=== PATIENT | male | born 2000 | race Caucasian/White ===

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

== ENCOUNTER 2023-04-05 20:23 | Emergency (ER) | payer BC, SELFPAY ==
[2023-04-05 20:24] VITALS: BP 123/83; PULSE 103; RESP 15; TEMP 37.4; O2SAT 98; BMI 31.0
--- NOTE | 2023-04-05 21:56 | US_ITS ---
EXAM: US SCROTUM CLINICAL INDICATION: left testicle pain TECHNIQUE: Realtime ultrasound of the testicles was performed with grayscale and Color Doppler analysis. COMPARISON: No relevant prior studies available. FINDINGS: RIGHT TESTICLE: Right testicle measures 4.8 x 2.0 x 3.0 cm. Normal in size and echotexture. No focal lesion. Normal blood flow is present. LEFT TESTICLE: The left testicle measures 5.2 x 2.3 x 2.8 cm. Normal in size and echotexture. No focal lesion. Normal blood flow is present. EPIDIDYMIDES: The epididymal head measures 0.6 x 1.3 x 0.6 cm. The left epididymal head measures 0.8 x 1.2 x 1.0 cm. There is a 3 mm epididymal cyst on the left. Normal color Doppler flow pattern in the epididymis. SCROTUM: There is a right-sided hydrocele present. No varicocele. US/Testicular with Arterial Flow IMPRESSION: Right-sided hydrocele. No other abnormalities are identified. There is no evidence of torsion. Electronically Signed: Agustin Bills MD at 22:53 EDT ,
--- NOTE | 2023-04-05 21:57 | EDS_ITS ---
HPI History of Present Illness Chief Complaint: Male Pain/Injury Detail of Chief Complaint: Left testicle pain Informant: patient Narrative Narrative: Patient presents with left testicle pain that started around 5 PM while at work. Patient states the pain came on gradually and worsened. At rest pain is like a 2 or 3 out of 10 but at times will have sharp exacerbations of the pain that goes up to about a 6 or 7 out of 10. Pain kind of radiates into the lower left abdomen. Patient denies any fevers. He had nausea but no vomiting. He has had some chills at home. PFSH PFSH Home Medications naproxen 500 mg tablet 500 mg PO BID #14 tabs 03/27/20 [Rx Last Taken Unknown] naproxen 500 mg tablet (Naprosyn) 500 mg PO BID PRN pain #20 tabs 04/05/23 [Rx Last Taken Unknown] sulfamethoxazole 800 mg-trimethoprim 160 mg tablet 1 tab PO BID #20 TABLETS 04/05/23 [Rx Last Taken Unknown] Allergy/AdvReac Type Severity Reaction Status Date / Time No Known Allergies Allergy Verified 04/05/23 20:27 Surgical History no surgical history Social History Smoking Status: Current every day smoker tobacco type: e-cigarettes ROS ROS ED Review of Systems ROS Unobtainable: other Constitutional Constitutional ED: Reports lethargy; Denies chills, fever(s), sweats or weight loss Eyes Eyes: Denies blurry vision, change in vision or diplopia ENT ENT ED: Denies rhinorrhea or sore throat Cardiovascular Cardiovascular: Denies chest pain, orthopnea or racing heartbeat Respiratory/Chest Respiratory/Chest: Denies cough, dyspnea, dyspnea on exertion, orthopnea or sputum Gastrointestinal Gastrointestinal: Reports abdominal pain; Denies diarrhea, nausea or vomiting Genitourinary Genitourinary ED: Reports other Details: Left testicle pain ; Denies dysuria, hematuria or urinary frequency Musculoskeletal Musculoskeletal: Denies arthralgias, back pain, myalgias or neck pain Integumentary Denies abscess, Abrasions or rash Neurologic Neurologic: Denies headache(s) or weakness Psychiatric Psychiatric: Denies anxiety, depression or suicidal thoughts Endocrine Endocrinology: Denies polydipsia, polyphagia or polyuria Hematologic/Lymphatic Hematologic/Lymphatic: Denies easy bleeding, easy bruising or lymphadenopathy Allergic/Immunologic Allergic/Immunologic ED: Denies mouth swelling, tongue swelling or urticaria EXAM Physical Exam Const Vital Signs: 04/05/23 20:24 Temperature 99.3 F H Temperature Source Temporal Pulse Rate 103 H Respiratory Rate 15 Blood Pressure 123/83 H Blood Pressure Mean 96 Pulse Ox 98 Oxygen Delivery Method Room Air Positive well nourished and well developed General Appearance ED: well developed and NAD HEENT Reports TM's clear and moist mucous membranes normocephalic and atraumatic; Negative for trauma or tenderness Tympanic Membrane ED: Yes TM's clear Eyes PERRL and EOMs intact bilaterally General Eye ED: Negative for pale conjunctiva or scleral icterus Neck no lymphadenopathy, supple and no JVD General: Negative for tenderness Chest Wall inspection of chest normal and palpation of chest normal Chest: Negative for tenderness Resp normal respiratory effort and clear to auscultation bilaterally Effort and Inspection: Negative for respiratory distress or pain with movement Auscultation: Negative for rhonchi, wheezes or diminished lung sounds Cardio regular rate, regular rhythm, S1 normal heart sound, S2 normal heart sound and no murmurs Peripheral Pulses: pulses 2+ throughout GI normal to inspection, nondistended, normoactive bowel sounds, soft to palpation, non-distended and no masses GI Narrative: Mild tenderness to palpation over left lower quadrant. No rebound, rigidity, or peritoneal signs. No mass palpated. No hernias noted Narrative: exam-circumcised male. Patient has tenderness over the left testicle. There is normal lie and normal cremasteric reflex. Mild tenderness over the epididymis. Back/Spine no CVA tenderness and no thoracic nor lumbar tenderness Extremity normal to inspection General Extremety ED: Negative for edema General Extremity: Negative for edema Neuro oriented x3, CN's II-XII intact bilaterally, no sensory deficits noted and gait normal Sensorium / Orientation: awake, alert, oriented to person, oriented to place and oriented to time Motor Exam: strength 5/5 throughout and strength abnormal Psych mental status grossly normal Skin no rashes or lesions noted and no wounds MDM MDM MDM Narrative Medical decision making narrative: Patient presented with left testicle pain that started today. In the differential would be torsion versus epididymitis versus hydrocele versus hernia versus kidney stone. On physical exam I do not appreciate any hernias. Clinically I do not feel he has a torsion. He had a testicular ultrasound that showed a right-sided hydrocele otherwise nothing acute. Patient had normal flow to both testicles. Patient had a urinalysis that was normal. Clinically patient looks well. I will start him on Bactrim as I suspect this could be early epididymitis. Patient also will be given a prescription for naproxen and advised to wear scrotal support. Will refer to urology for follow-up. Patient advised to return if worsening pain, fever, vomiting, or condition should worsen anyway. Lab Data Labs: Laboratory Results - last 24 hr 04/05/23 22:45 Urine Color Yellow Urine Clarity Clear Urine pH 6.5 Ur Specific [place] 1.010 Urine Protein Negative Urine Glucose (UA) Normal Urine Ketones Negative Urine Occult Blood Negative Urine Nitrite Negative Urine Bilirubin Negative Urine Urobilinogen Normal Ur Leukocyte Esterase Negative Urine RBC 0 SEEN Urine WBC 0 SEEN Ur Squamous Epith Cells 0 SEEN Urine Bacteria 0 SEEN Urine Mucus 0 SEEN Radiography Diagnostic Testing: Clinical Impression(s) from Imaging Studies Testicular Ultrasound 04/05/23 21:56 IMPRESSION: Right-sided hydrocele. No other abnormalities are identified. There is no evidence of torsion. Electronically Signed: Agustin Bills MD at 22:53 EDT , Discharge Plan Triage Chief Complaint: Male Pain/Injury ED Provider: Tanika Miles Dx/Rx/DC Orders Clinical Impression: Pain in left testicle Instructions: ED Epididymitis, ED Testicular Pain, Unclear Cause Prescriptions: New sulfamethoxazole-trimethoprim [sulfamethoxazole-trimethoprim] 800-160 mg tablet 1 tab PO BID Qty: 20 0RF naproxen [Naprosyn] 500 mg tablet 500 mg PO BID PRN (Reason: pain) Qty: 20 0RF No Action naproxen 500 MG tablet 500 mg PO BID Qty: 14 0RF Primary Care Provider: Berlin Gonzalez Referrals: Denis Holt MD [Med Staff - Active Staff] - 3-5 Days Berlin Gonzalez MD [Primary Care Provider] - Disposition Disposition: Home, Self Care Discharge Date/Time: 04/05/23 23:44
[2023-04-05 22:53] LABS: Bacteria 0 SEEN /hpf (None Seen); Mucous, Urine 0 SEEN /hpf (<or=2+); Red Blood Cells-Urine 0 SEEN /hpf (0-5); Squamous Epithelial Cells - UA 0 SEEN /hpf (0-5); White Blood Cells 0 SEEN /hpf (0-5)
[2023-04-05 22:59] LABS: Color, Urine Yellow (Yellow); Glucose, Dipstick Normal (Normal); Ketone-Dipstick Negative (Negative); Leukocyte Esterase-Dipstick Negative /ul (Negative); Nitrite-Dipstick Negative (Negative); Occult Blood-Urine Negative /ul (Negative); Protein-Dipstick Negative (Negative); Urine Bilirubin Dipstick Negative (Negative); Urine Clarity Clear (Clear); Urine Urobilinogen Normal (Normal); Urine pH 6.5 (5.0 - 8.0)
[2023-04-05] MEDS: Smz/Tmp Ds Tablet 1 TABLET PO (23:29)
[2023-04-05] MEDS: Naproxen 375 MG Tablet PO (23:29)
== END 2023-04-05 23:44 | disposition home or self-care (01) ==
PROVIDERS: Emergency Provider Emergency Medicine; PCP Pediatrics; Visit Provider Emergency Medicine
DX: N50.812 Left testicular pain (principal); F17.290 Nicotine dependence, other tobacco product, uncomplicated
CPT/HCPCS: 99281; 76870; 81001; 93976; 99283

== ENCOUNTER 2024-01-15 20:53 | Emergency (ER) | payer BC, SELFPAY ==
[2024-01-15 20:53] VITALS: BP 100/82; PULSE 73; RESP 15; TEMP 36.1; O2SAT 100; BMI 29.2
[2024-01-15 21:53] VITALS: BP 127/66; PULSE 59; RESP 20; O2SAT 95
[2024-01-15 21:53] LABS: Absolute Lymphocyte Count 1.61 X10^3/uL (0.83-4.51); Absolute Neutrophil Count 5.1 X10^3/uL (2.0-7.7); Basophil# 0.05 X10^3/uL; Basophil% 0.7 % (0-1); Eosinophil# 0.18 X10^3/uL; Eosinophils% 2.4 % (0-5); Hematocrit 43.9 % (40-54); Lymphocyte # 1.61 X10^3/ul (0.83-4.51); Lymphocyte % 21.8 % (19-41); Mean Corp Hgb Conc 31.9 g/dL (32-36); Mean Corpuscular Hgb 27.9 pg (27.0-32.0); Mean Corpuscular Volume 87.6 fL (80-94); Monocyte% 5.4 % (0-10); NRBC Flagged by Analyzer 0 % (0-5); Neutrophil # 5.13 X10^3/uL (2.7-7.7); Neutrophil % 69.6 % (47-70); Platelet Count 292 K/mm3 (150-450); RBC Distribution Width CV 12.5 % (11.6-14.6); RBC Distribution Width SD 39.8 fl (35.1-43.9); Red Blood Count 5.01 M/mm3 (4.6-6.2); White Blood Count 7.4 K/mm3 (4.4-11.0)
--- NOTE | 2024-01-15 21:55 | RAD_ITS ---
INDICATION: chest pain EXAMINATION/TECHNIQUE: X-RAY - portable upright AP chest x-ray COMPARISON: None. FINDINGS: LINES/DEVICES: None. LUNGS: No consolidation, edema or effusion. No pneumothorax. MEDIASTINUM AND CARDIOVASCULAR STRUCTURES: Cardiac silhouette not enlarged. Central airways and mediastinal contour are unremarkable. BONES AND SOFT TISSUES: Unremarkable. RAD/Chest 1 View (Portable) IMPRESSION: No radiographic evidence of acute cardiopulmonary disease. Electronically Signed: Kenneth Mcgill MD at 22:38 EDT ,
[2024-01-15 22:00] VITALS: BP 122/67; PULSE 58; RESP 18; O2SAT 100
--- NOTE | 2024-01-15 22:09 | ED.VIS.CHEST ---
HPI History of Present Illness Chief Complaint: Chest Pain Informant: patient Narrative Narrative: Patient has been having nonpleuritic left-sided chest tightness all day, about 13 hours now. He woke up with the discomfort. Nothing is really adjusted at all day. Is nonpleuritic, nonexertional, position changes do not seem to affect anything, eating did not seem to affect anything today. Denies anything unusual overnight prior to the onset that he can recall. Has not made him dyspneic. Discomfort radiates up into his left base of the neck and his left arm a little, he thinks. Never had this before which is why he is here in the ER to have it evaluated. He is healthy with no medical problems, he vapes but does not smoke tobacco or do any other drugs. CVD Risk Factors: Negative for Hypertension, Diabetes, Hypercholesterolemia or Smoking PE Risk Factors: Negative for Recent Travel/Surgery, Recent Immobilization, Prior DVT or PE, Cancer or OCP + Smoking + >/=35 PFSH PFSH Medical History (Updated 01/15/24 @ 22:[address] Onur Mcgee MD) Pericarditis Medical History no medical history no medical history Home Medications NK 01/15/24 [History Last Taken Unknown] Allergy/AdvReac Type Severity Reaction Status Date / Time No Known Allergies Allergy Verified 01/15/24 20:53 Social History Smoking Status: Current every day smoker tobacco type: e-cigarettes ROS ROS ED Constitutional Constitutional ED: Denies chills or fever(s) Eyes Eyes: Denies change in vision or diplopia ENT ENT ED: Denies rhinorrhea or sore throat Cardiovascular Cardiovascular: Reports as per HPI and chest pain; Denies palpitations Respiratory/Chest Respiratory/Chest: Reports as per HPI; Denies cough or dyspnea Gastrointestinal Gastrointestinal: Denies abdominal pain, diarrhea, nausea or vomiting Musculoskeletal Musculoskeletal: Reports as per HPI and extremity pain; Denies back pain or neck pain Integumentary Denies abscess or rash Neurologic Neurologic: Denies headache(s), paresthesias or weakness Psychiatric Psychiatric: Denies anxiety or suicidal thoughts EXAM Physical Exam Const Vital Signs: 01/15/24 20:53 01/15/24 21:53 01/15/24 22:00 Temperature 97 F L Temperature Source Temporal Pulse Rate 73 59 L 58 L Respiratory Rate 15 20 H 18 Respiratory Effort Blood Pressure 100/82 H 127/66 H 122/67 H Blood Pressure Mean 88 86 85 Pulse Ox 100 95 100 Oxygen Delivery Method Room Air Room Air 01/15/24 22:19 01/15/24 22:19 01/15/24 23:00 Temperature Temperature Source Pulse Rate 56 L Respiratory Rate 18 Respiratory Effort Normal Blood Pressure 116/77 Blood Pressure Mean 90 Pulse Ox 97 Oxygen Delivery Method Room Air Room Air Positive well nourished and well developed General Appearance ED: well developed and NAD HEENT Reports moist mucous membranes normocephalic and atraumatic Eyes PERRL and EOMs intact bilaterally Neck full ROM and supple Chest Wall inspection of chest normal Chest Narrative: Mild tenderness left chest wall below the clavicle no subcutaneous emphysema or crepitance or rash Resp normal respiratory effort and clear to auscultation bilaterally Cardio regular rate, regular rhythm and no murmurs GI non-distended GI Narrative: Mild subjective epigastric and left upper quadrant tenderness. Benign abdomen overall. Auscultation: normoactive bowel sounds Palpation: soft Back/Spine General Back: other FROM Extremity normal to inspection General Extremety ED: Negative for edema, pulses abnormal or tenderness General Extremity: Negative for edema or pulses abnormal Neuro oriented x3, CN's II-XII intact bilaterally and no sensory deficits noted Sensorium / Orientation: awake and alert Motor Exam: strength 5/5 throughout Psych mental status grossly normal Skin no rashes or lesions noted and no wounds Heart Score History: Slightly/Non-Suspicious ECG: Normal Age: </= 45 years Risk Factors: No Risk Factors Troponin: </= Normal Limit Score: 0 MDM MDM MDM Narrative Medical decision making narrative: 1 view chest x-ray is negative for pneumothorax, infiltrate, mass, mediastinal widening on my interpretation. His labs are normal his EKG is normal. His troponin is in the single digits after having discomfort all day and in context of normal EKG and a young healthy 23-year-old male, this is not likely to be cardiac in etiology. Certainly, that was in the differential, as well as pericarditis although his symptoms are really inconsistent with that and PE, which he does not need further workup to rule out since his PERC score is 0. Considering other things in the differential such as pulmonary etiology due to allergies which apparently has had some seasonal allergies lately and been sneezing a lot according to his significant other, and GI etiologies specifically the esophagus, including but not exclusive of esophageal spasm, reflux. Started with a GI cocktail. He said this relieved his pain. Patient reassured and discharged home, recommend 1-2-week course of H2 jimmy or PPI if he continues to have symptoms/episodes. Lab Data Attestation: I reviewed the patient's lab results. Labs: Laboratory Results - last 24 hr 01/15/24 21:45 WBC 7.4 RBC 5.01 Hgb 14.0 Hct 43.9 MCV 87.6 MCH 27.9 MCHC 31.9 L RDW Std Deviation 39.8 RDW Coeff of Narcisa 12.5 Plt Count 292 MPV 10.0 Immature Gran % (Auto) 0.100 Neut % (Auto) 69.6 Lymph % (Auto) 21.8 [place] % (Auto) 5.4 Eos % (Auto) 2.4 Baso % (Auto) 0.7 Absolute Neuts (auto) 5.1 Absolute Lymphs (auto) 1.61 Nucleated RBC % 0 Sodium 142 Potassium 3.7 Chloride 109 H Carbon Dioxide 30.0 Anion Gap 3 L BUN 9 Creatinine 0.92 Estim Creat Clear Calc 148.36 Est GFR (MDRD) Af Amer 132 Est GFR (MDRD) Non-Af 109 BUN/Creatinine Ratio 9.8 L Glucose 110 H Calcium 8.7 Troponin I High Sens 4 Radiography Diagnostic Testing: Clinical Impression(s) from Imaging Studies Chest X-Ray 01/15/24 21:55 IMPRESSION: No radiographic evidence of acute cardiopulmonary disease. Electronically Signed: Kenneth Mcgill MD at 22:38 EDT , Rhythm Strip Rhythm Strip: Sinus Rhythm Rate: 75 Ectopy: None EKG Initial EKG: Attestation: I personally reviewed and interpreted this EKG as follows: Interpretation: Sinus Rhythm and No Acute Injury Pattern Comments: nml ekg Discharge Plan Triage Chief Complaint: Chest Pain ED Provider: Onur Mcgee Dx/Rx/DC Orders Clinical Impression: Chest pain, non-cardiac Instructions: ED Chest Pain, Noncardiac Prescriptions: No Action NK Primary Care Provider: Berlin Gonzalez Referrals: Berlin Gonzalez MD [Primary Care Provider] - 1 Week if not improving Activity Restrictions/Additional Instructions: Pepcid 40 mg once daily or Prilosec/Nexium/omeprazole for 1-2 weeks once daily if you continue to have symptoms or problems. Disposition Disposition: Home, Self Care
[2024-01-15 22:11] LABS: Anion Gap 3 (5-15); BUN 9 mg/dL (7-18); BUN/Creat Ratio 9.8 RATIO (10-20); Calcium,Total 8.7 mg/dL (8.5-10.1); Chloride 109 mmol/L (98-107); Creatinine, Serum 0.92 mg/dL (0.70-1.30); EST Glomerular Filtration Rate 109 mL/min (>60); Est Glom Filt Rate - Afr Amer 132 mL/min (>60); Estimated Creatinine Clearance 148.36 ml/min; Glucose 110 mg/dL (74-106); Potassium 3.7 mmol/L (3.5-5.1); Sodium Level 142 mmol/L (136-145); Troponin-I HS (w/2H Reflex) 4 pg/mL (3.0-78.0)
[2024-01-15] MEDS: Mag Hydrox/Al Hydrox/Simeth 30 ML UDC PO (22:34)
[2024-01-15 23:00] VITALS: BP 116/77; PULSE 56; RESP 18; O2SAT 97
[2024-01-15 23:16] VITALS: BP 114/61; PULSE 70; RESP 20; TEMP 36.4; O2SAT 97
[2024-01-15 23:51] LABS: Reflex Troponin-HS? (from REC) Y
== END 2024-01-15 23:18 | disposition home or self-care (01) ==
PROVIDERS: Emergency Provider Emergency Medicine; PCP Pediatrics; Visit Provider Emergency Medicine
DX: R07.89 Other chest pain (principal); F17.290 Nicotine dependence, other tobacco product, uncomplicated
CPT/HCPCS: 71045; 80048; 84484; 85025; 93005; 99285; A4216